=== PATIENT | female | born 1975 | race Caucasian/White ===

== ENCOUNTER → 2021-06-08 11:57 | Outpatient (CLI) | payer OTHER, SELFPAY ==
--- NOTE | 2021-06-08 12:26 | DI.MG.S_ITS ---
KIKA OATES date: 1975 Sex: F Attending Physician: Christopher Indications: Date: 06/08/2021 12:03 At the request of: DAVE QURESHI Procedure: MM diagnostic mammo BI BILATERAL DIGITAL DIAGNOSTIC MAMMOGRAM 3D/2D: 06/08/2021 CLINICAL: Left breast indent. Family history of breast cancer. Comparison is made to exams dated: 06/15/2020 mammogram, 11/12/2018 mammogram, and 10/14/2017 mammogram - [facility]. The tissue of both breasts is heterogeneously dense. This may lower the sensitivity of mammography. No significant masses, calcifications, or other findings are seen in either breast. IMPRESSION: INCOMPLETE: NEEDS ADDITIONAL IMAGING EVALUATION There is no abnormality seen in the left breast to correspond with the skin lesion in the lower inner quadrant, however, ultrasound is recommended. Ultrasound will be performed immediately following the current exam. This exam was interpreted at Station ID: [id number]. NOTE: For mammograms, a report in lay terms will be sent to the patient. Approximately 15% of breast malignancies will not be visualized mammographically. In the management of a palpable breast mass, a negative mammogram must not discourage biopsy of a clinically suspicious lesion. Electronically Signed By: Barry Galvez M.D. [email or web address]/:06/08/2021 12:54:16 ACR BI-RADS Category 0: Incomplete 3340F
--- NOTE | 2021-06-08 12:52 | DI.US.S_ITS ---
Patient Name: KIKA OATES date: 1975 Sex: F Attending Physician: Christopher Indications: Date: 06/08/2021 12:58 At the request of: DAVE QURESHI Procedure: US breast LT limited LIMITED ULTRASOUND OF LEFT BREAST: 06/08/2021 CLINICAL: Left breast skin indentation. Comparison is made to exams dated: 06/08/2021 mammogram - [facility], 06/15/2020 mammogram, 11/12/2018 mammogram, 10/14/2017 mammogram, 09/18/2016 mammogram, and 08/12/2013 mammogram - [facility]. Real-time ultrasound of the left breast 6 o'clock region was performed on the area of interest. No discrete cystic or solid mass lesion identified in the area of skin abnormality. IMPRESSION: NEGATIVE There is no sonographic evidence of malignancy. There is no abnormality seen in the left breast to correspond with the skin retraction at 6 o'clock, however, clinical followup is recommended. If clinical concern persists, further evaluation may be obtained with an MRI. A 1 year screening mammogram is recommended. This exam was interpreted at Station ID: [id number]. Electronically Signed By: Barry Galvez M.D. ddp/:06/08/2021 13:04:00 letter sent: Clinical Evaluation Ultrasound BI-RADS: 1 Negative
== END ==
PROVIDERS: PCP Physician Assistant Medical; Referring Provider Physician Assistant Medical; Visit Provider Physician Assistant Medical
DX: N60.12 Diffuse cystic mastopathy of left breast (principal); R92.2 Inconclusive mammogram; Z80.3 Family history of malignant neoplasm of breast
CPT/HCPCS: 76642; 77066; G0279